=== PATIENT | female | born 1950 | race Caucasian/White ===

== ENCOUNTER 2018-06-09 09:31 | Emergency (ER) | payer OTHER ==
[~2018-06-09] VITALS: Ht 157.5 cm; Wt 73.5 kg
[~2018-06-09 09:31] MED LIST: LOTREL 5-10 MG1 CAP PO
[2018-06-09] MEDS ORDERED: LOTREL 10-20 M1 EACH (09:39)
[2018-06-09] MEDS ORDERED: METFORMIN HCL500 MG (09:39)
== END 2018-06-09 16:00 | disposition home or self-care (01) ==
LOC: ER 09:31
DX: K52.89 Other specified noninfective gastroenteritis and colitis (principal)

== ENCOUNTER 2018-06-10 13:01 | Day surgery (SDC) | payer OTHER ==
[~2018-06-10] VITALS: Ht 157.5 cm; Wt 73.5 kg
[~2018-06-10 13:01] MED LIST changes: +LOTREL 10-20 M1 EACH; +METFORMIN HCL500 MG
== END 2018-06-11 13:00 | disposition home or self-care (01) ==
LOC: ER 13:01 → CIR.AMB 06-11 07:00 → ER 06-11 07:33 → SEC-K 06-11 07:33 → CIR.AMB 06-11 13:00 → EDSTATUS 06-11 16:00 → SEC-K 06-11 22:15
DX: N20.1 Calculus of ureter (principal); I10 Essential (primary) hypertension; E11.65 Type 2 diabetes mellitus with hyperglycemia

== ENCOUNTER 2018-06-14 10:24 | Outpatient (CLI) | payer OTHER | END 2018-06-14 10:37 | disposition home or self-care (01) | LOC: RAD 10:24 | DX: N20.0 Calculus of kidney (principal) ==

== ENCOUNTER 2018-06-22 04:57 | Emergency (ER) | payer OTHER ==
[~2018-06-22] VITALS: Ht 157.5 cm; Wt 73.5 kg
== END 2018-06-22 13:32 | disposition home or self-care (01) ==
LOC: ER 04:57
DX: N20.1 Calculus of ureter (principal); N39.0 Urinary tract infection, site not specified

== ENCOUNTER 2018-06-24 09:42 | Outpatient (CLI) | payer OTHER | END 2018-06-24 09:49 | disposition home or self-care (01) | LOC: RAD 501 09:42 | DX: N20.1 Calculus of ureter (principal) ==

== ENCOUNTER 2018-06-30 23:22 | Inpatient (IN) | payer OTHER ==
[~2018-06-30] VITALS: Ht 165.1 cm; Wt 72.6 kg
--- NOTE | 2018-06-30 23:30 | NUR ---
SE RECIBE PTE ALERTA Y ORIENTADA POR CHANCE. PTE REFIERE PRESENTAR DOLOR ENCOSTADO DERECHO DESDE LAS 8:00PM DE HOY. INDICA TENER DOLOR DE PIEDRAS.
--- NOTE | 2018-07-01 07:00 | NUR ---
PACIENTE ALERTA Y ORIENTADA X3. EN TE CON BARANDAS ELEVADAS. H/L PATENTE Y MITCHELL DE EDEMA Y ERITEMA. PACIENTE CONSULTADA CON DR. STEELE, PENDIENTE VISITA. SE MANTIENE BAJO OBSERVACION POR CAMBIOS SIGNIFICATIVOS.
--- NOTE | 2018-07-01 18:12 | NUR ---
SE RECIBE FEMINA ALERTA Y ORIENTADA POR CHANCE ESFERAS, EN TE CON BARANDAS ELEVADAS Y SEGURAS. AREA DE VENOPUNCION MITCHELL DE EDEMA O ENROJECIMIENTO. RECINIENDO IVF ORDENADO. SE AMNTIENE EN ESPERA DE DR. STEELE.
--- NOTE | 2018-07-01 23:30 | NUR ---
SE RECIBE PTE ALERTA Y CONCIENTE POR 3 EN TE CON BARANDAS ELEVADA Y TIMBRE ACCESIBLE PTE NO PRESENTA DOLOR ALMOMENO SE OBSERVA VENOPUNCION PATENTE Y MITCHELL DE EDEMA PTE SE MANTIENE EN OBSERVACION Y BAJO TRATAMIENTO EN ESPERA DEL DR RANDALL
== END 2018-07-03 11:00 | disposition home or self-care (01) | DRG 661 ==
LOC: ER 23:22 → O/R 07-01 23:49 → SEC-K 07-01 23:49 → O/R 07-02 15:09
PROVIDERS: ADMIT Urology
PROC: 0T768DZ Dilation of Right Ureter with Intraluminal Device, Via Natural or Artificial Opening Endoscopic (ICD-10-PCS; principal; 2018-07-02 12:00)
DX: N20.1 Calculus of ureter (principal); N21.1 Calculus in urethra

== ENCOUNTER 2018-07-06 11:07 | Emergency (ER) | payer OTHER ==
[~2018-07-06] VITALS: Ht 157.5 cm; Wt 68.9 kg
[2018-07-06] MEDS ORDERED: MACROBID 100 M100 MG (11:36)
[2018-07-06] MEDS ORDERED: TRAMADOL HCL E100 M1 (11:36)
== END 2018-07-06 15:16 | disposition home or self-care (01) ==
LOC: ER 11:07
DX: K52.89 Other specified noninfective gastroenteritis and colitis (principal)

== ENCOUNTER 2018-07-09 18:11 | Emergency (ER) | payer OTHER ==
[~2018-07-09] VITALS: Ht 157.5 cm; Wt 69.9 kg
[~2018-07-09 18:11] MED LIST changes: +MACROBID 100 M100 MG; +TRAMADOL HCL E100 M1
== END 2018-07-09 21:22 | disposition home or self-care (01) ==
LOC: ER 18:11
DX: G89.18 Other acute postprocedural pain (principal); R10.2 Pelvic and perineal pain; N39.0 Urinary tract infection, site not specified; A08.8 Other specified intestinal infections

== ENCOUNTER 2018-09-25 09:39 | Outpatient (CLI) | payer OTHER | END 2018-09-25 09:41 | disposition home or self-care (01) | LOC: SONOGRAMA 09:39 | DX: N20.1 Calculus of ureter (principal) ==

== ENCOUNTER 2021-06-28 11:59 | Outpatient (CLI) | payer OTHER | END 2021-06-28 12:16 | disposition home or self-care (01) | LOC: SONOGRAMA 11:59 | PROVIDERS: ATTEND General Practice | DX: M25.512 Pain in left shoulder (principal) ==

== ENCOUNTER 2021-09-13 18:15 | Inpatient (IN) | payer OTHER ==
[~2021-09-13] VITALS: Ht 157.5 cm; Wt 73.9 kg
[2021-09-13] MEDS ORDERED: METOPROLOL SUCC50 MG PO (18:24)
== END 2021-09-18 21:41 | disposition home or self-care (01) | DRG 392 ==
LOC: ER 18:15 → SEC-K 09-14 00:41 → SURH 09-14 22:12 → SEC-K 09-14 22:13 → SURH 09-15 12:41
PROVIDERS: ADMIT Internal Medicine; ATTEND Internal Medicine
DX: K52.89 Other specified noninfective gastroenteritis and colitis (principal); N39.0 Urinary tract infection, site not specified; N20.1 Calculus of ureter; R10.31 Right lower quadrant pain; I10 Essential (primary) hypertension; Z20.822 Contact with and (suspected) exposure to COVID-19; E11.9 Type 2 diabetes mellitus without complications; Z79.4 Long term (current) use of insulin

== ENCOUNTER 2022-02-16 11:54 | Outpatient (CLI) | payer OTHER ==
[~2022-02-16 11:54] MED LIST changes: +METOPROLOL SUCC50 MG PO
== END 2022-02-16 12:04 | disposition home or self-care (01) ==
LOC: LAB 11:54
PROVIDERS: ATTEND Radiology Diagnostic Radiology
DX: R10.30 Lower abdominal pain, unspecified (principal)

== ENCOUNTER 2022-02-18 18:24 | Emergency (ER) | payer OTHER ==
[~2022-02-18] VITALS: Ht 157.5 cm; Wt 69.9 kg
[2022-02-19] MEDS ORDERED: PEPCID40 MG PO (04:22)
[2022-02-19] MEDS ORDERED: ONDANSETRON ODT4 MG PO (04:22)
[2022-02-19] MEDS ORDERED: LEVSIN/SL0.125 MG SL (04:22)
== END 2022-02-19 04:42 ==
LOC: ER 18:24
DX: K52.9 Noninfective gastroenteritis and colitis, unspecified (principal)

== ENCOUNTER 2022-03-01 09:26 | Outpatient (CLI) | payer OTHER ==
[~2022-03-01 09:26] MED LIST changes: +LEVSIN/SL0.125 MG SL; +ONDANSETRON ODT4 MG PO; +PEPCID40 MG PO
== END 2022-03-01 09:27 | disposition home or self-care (01) ==
LOC: LAB 09:26
DX: C18.7 Malignant neoplasm of sigmoid colon (principal); E11.9 Type 2 diabetes mellitus without complications

== ENCOUNTER 2022-09-11 15:23 | Emergency (ER) | payer OTHER ==
[~2022-09-11] VITALS: Ht 157.5 cm; Wt 67.1 kg
[2022-09-11] MEDS ORDERED: DRAMAMINE LESS25 MG PO (20:09)
== END 2022-09-11 20:35 | disposition home or self-care (01) ==
LOC: ER 15:23
DX: R42 Dizziness and giddiness (principal); C18.9 Malignant neoplasm of colon, unspecified; I10 Essential (primary) hypertension

== ENCOUNTER 2022-09-24 07:45 | Outpatient (CLI) | payer OTHER ==
[~2022-09-24 07:45] MED LIST changes: +DRAMAMINE LESS25 MG PO
== END 2022-09-24 07:57 | disposition home or self-care (01) ==
LOC: TOM 07:45
PROVIDERS: ATTEND Internal Medicine Hematology & Oncology
DX: C19 Malignant neoplasm of rectosigmoid junction (principal)
CPT/HCPCS: 71260; 74177; Q9965

== ENCOUNTER 2022-09-30 10:43 | Emergency (ER) | payer OTHER ==
[~2022-09-30] VITALS: Ht 165.1 cm; Wt 59.4 kg
== END 2022-09-30 22:16 | disposition home or self-care (01) ==
LOC: ER 10:43
DX: C18.9 Malignant neoplasm of colon, unspecified (principal); R53.1 Weakness; R63.0 Anorexia; E86.0 Dehydration

== ENCOUNTER 2023-05-08 11:26 | Outpatient (CLI) | payer OTHER | END 2023-05-08 11:31 | disposition home or self-care (01) | LOC: SONOGRAMA 11:26 | PROVIDERS: ATTEND Obstetrics & Gynecology | DX: R10.2 Pelvic and perineal pain (principal) ==

== ENCOUNTER 2023-11-25 10:24 | Outpatient (CLI) | payer OTHER ==
[~2023-11-25 10:24] MED LIST changes: +MECLIZINE HCL25 MG PO
== END 2023-11-25 10:44 | disposition home or self-care (01) ==
LOC: SONOGRAMA 10:24
PROVIDERS: ATTEND General Practice
DX: R10.2 Pelvic and perineal pain (principal); D25.9 Leiomyoma of uterus, unspecified

== ENCOUNTER 2023-12-19 10:25 | Outpatient (CLI) | payer OTHER | END 2023-12-19 10:31 | disposition home or self-care (01) | LOC: LAB 10:25 | PROVIDERS: ATTEND Obstetrics & Gynecology | DX: Z12.11 Encounter for screening for malignant neoplasm of colon (principal); D64.9 Anemia, unspecified; E03.8 Other specified hypothyroidism; N95.1 Menopausal and female climacteric states; I10 Essential (primary) hypertension; C51.9 Malignant neoplasm of vulva, unspecified; A64 Unspecified sexually transmitted disease; N39.0 Urinary tract infection, site not specified; R97.8 Other abnormal tumor markers; R79.89 Other specified abnormal findings of blood chemistry; E55.9 Vitamin D deficiency, unspecified; A60.9 Anogenital herpesviral infection, unspecified ==

== ENCOUNTER 2024-01-27 10:17 | Outpatient (CLI) | payer OTHER | END 2024-01-27 10:22 | disposition home or self-care (01) | LOC: SONOGRAMA 10:17 | PROVIDERS: ATTEND Obstetrics & Gynecology | DX: R10.2 Pelvic and perineal pain (principal) ==

== ENCOUNTER 2024-05-19 13:06 | Outpatient (CLI) | payer OTHER | END 2024-05-19 13:12 | disposition home or self-care (01) | LOC: SONOGRAMA 13:06 | PROVIDERS: ATTEND Obstetrics & Gynecology | DX: R10.2 Pelvic and perineal pain (principal); Z13.29 Encounter for screening for other suspected endocrine disorder; R19.00 Intra-abdominal and pelvic swelling, mass and lump, unspecified site ==

== ENCOUNTER 2024-06-05 07:33 | Outpatient (CLI) | payer OTHER | END 2024-06-05 07:34 | disposition home or self-care (01) | LOC: NUCLEAR 07:33 | PROVIDERS: ATTEND Internal Medicine Hematology & Oncology | DX: C19 Malignant neoplasm of rectosigmoid junction (principal) | CPT/HCPCS: 78815; A9552 ==

== ENCOUNTER → 2024-06-09 12:48 | Outpatient (CLI) | payer OTHER | END | disposition home or self-care (01) | LOC: NUCLEAR 12:48 | PROVIDERS: ATTEND Obstetrics & Gynecology | DX: M81.0 Age-related osteoporosis without current pathological fracture (principal) ==

== ENCOUNTER 2025-03-15 08:41 | Outpatient (CLI) | payer OTHER | END 2025-03-15 08:45 | disposition home or self-care (01) | LOC: TOM 08:41 | DX: C18.7 Malignant neoplasm of sigmoid colon (principal); C78.01 Secondary malignant neoplasm of right lung; C78.02 Secondary malignant neoplasm of left lung | CPT/HCPCS: 71270; 74178; Q9965 ==